=== PATIENT | male | born 1970 | race Caucasian/White ===

== ENCOUNTER 2025-03-05 13:56 | Emergency (ER) | payer OTHER ==
[~2025-03-05] VITALS: Ht 177.8 cm; Wt 82.6 kg
[2025-03-05 14:37] LABS: BASOPHILS 0.8 % (0.2-1.2); EOSINOPHILS 6.0 % (0.8-7.0); LYMPHOCYTES 28.1 % (21.8-53.1); MCH 31.1 PG (25.7-32.2); MCHC 34.6 g/dL (32.3-36.5); MCV 89.9 fL (79.0-92.2); MONOCYTES 8.9 % (5.3-12.2); NEUTROPHILS 56.0 % (34.0-67.9); RBC 4.27 M/uL (4.63-6.08)
[2025-03-05] MEDS ORDERED: HYDROmorphone HCL 1 MG/ML SYR IV PRN (14:45)
[2025-03-05 14:52] LABS: ALT (SGPT) 17.0 U/L (14-59); AST (SGOT) 11.0 U/L (15-37); GLOMERULAR FILTRATION RATE,EST 104.0 mL/min (>60); PROTEIN, TOTAL 6.9 g/dL (6.4-8.2); UREA NITROGEN 15.0 mg/dL (7-18)
[2025-03-05] MEDS ORDERED: ONDANSETRON ODT4 MG PO (16:09)
[2025-03-05] MEDS ORDERED: HYDROCODON-ACE1 EA10 PO (16:09)
[2025-03-05 16:22] VITALS: BP 118/81
== END 2025-03-05 16:23 | disposition home or self-care (01) ==
LOC: ED 13:56
PROVIDERS: Emergency Medicine
DX: S22.41XA Multiple fractures of ribs, right side, initial encounter for closed fracture (principal); Z88.6 Allergy status to analgesic agent; Z88.5 Allergy status to narcotic agent; V56.4XXA Person boarding or alighting a pick-up truck or van injured in collision with other nonmotor vehicle, initial encounter
CPT/HCPCS: 36415; 71260; 74177; 80053; 85025; 99284-25; Q9967

== ENCOUNTER 2025-06-08 21:36 | Emergency (ER) | payer OTHER ==
[~2025-06-08] VITALS: Ht 177.8 cm; Wt 79.4 kg
[~2025-06-08 21:36] MED LIST: HYDROCODON-ACE1 EA10 PO; ONDANSETRON ODT4 MG PO
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
[2025-06-08] MEDS ORDERED: DIPHTH,PERTUSS(ACELL),TET VAC 0.5 ML SYRINGE IM ONE (23:30)
[2025-06-08] MEDS ORDERED: KETOROLAC TROMETHAMINE 30 MG/ML VIAL IV ONE (23:30)
[2025-06-08 23:39] LABS: BASOPHILS 0.5 % (0.2-1.2); EOSINOPHILS 1.9 % (0.8-7.0); LYMPHOCYTES 19.8 % (21.8-53.1); MCH 31.3 PG (25.7-32.2); MCHC 34.3 g/dL (32.3-36.5); MCV 91.0 fL (79.0-92.2); MONOCYTES 9.4 % (5.3-12.2); NEUTROPHILS 68.2 % (34.0-67.9); RBC 4.00 M/uL (4.63-6.08)
[2025-06-08] MEDS ORDERED: DAPTOmycin 500 MG/10 ML VIAL IV ONE (23:45)
[2025-06-08 23:55] LABS: ALT (SGPT) 19.0 U/L (14-59); AST (SGOT) 9.0 U/L (15-37); GLOMERULAR FILTRATION RATE,EST 108.0 mL/min (>60); PROTEIN, TOTAL 6.3 g/dL (6.4-8.2); UREA NITROGEN 16.0 mg/dL (7-18)
[2025-06-09] MEDS ORDERED: DOXYCYCLINE HY100 MG PO (00:08)
[2025-06-09] MEDS ORDERED: METRONIDAZOLE500 MG PO (00:08)
[2025-06-09] MEDS ORDERED: HYDROCODON-ACE1 EA10 PO (00:08)
[2025-06-09] MEDS ORDERED: HYDROCODONE BIT/ACETAMINOPHEN 5/325 MG 1 TAB HOME.PACK PO ONE (00:23)
[2025-06-09] MEDS ORDERED: HYDROCODONE BIT/ACETAMINOPHEN 5/325 MG 1 TAB HOME.PACK PO PRN (00:30)
[2025-06-09 01:11] VITALS: BP 124/88
== END 2025-06-09 01:13 | disposition home or self-care (01) ==
LOC: ED 21:36
PROVIDERS: Emergency Medicine
DX: M86.8X7 Other osteomyelitis, ankle and foot (principal); E11.9 Type 2 diabetes mellitus without complications
CPT/HCPCS: 36415; 73660; 80053; 85025; 90471; 90715; 96374; 96375; 99283-25; A9270; J0878; J1885

== ENCOUNTER 2025-06-12 07:00 | Emergency (ER) | payer OTHER | END 2025-06-12 08:12 | disposition home or self-care (01) | LOC: ED 07:00 | DX: M86.8X7 Other osteomyelitis, ankle and foot (principal); E11.9 Type 2 diabetes mellitus without complications; Z79.899 Other long term (current) drug therapy ==